=== PATIENT | male | born 1965 | race African-American/Black ===

== ENCOUNTER 2019-08-14 15:35 | Emergency (ER) | payer MEDICAID ==
[~2019-08-14] VITALS: Ht 177.8 cm; Wt 91.0 kg
[2019-08-14 17:09] VITALS: BP 130/80
[2019-08-14] MEDS ORDERED: KETOROLAC 30MG/ML VIAL IM ONE (17:15)
== END 2019-08-14 18:02 | disposition home or self-care (01) ==
LOC: ER 15:35
DX: R68.84 Jaw pain (principal); K04.7 Periapical abscess without sinus; K11.20 Sialoadenitis, unspecified; Z88.0 Allergy status to penicillin
CPT/HCPCS: 96372; 99283; J1885

== ENCOUNTER 2020-10-17 13:02 | Emergency (ER) | payer MEDICAID ==
[~2020-10-17] VITALS: Ht 182.9 cm; Wt 89.0 kg
[2020-10-17] MEDS ORDERED: KETOROLAC 60MG/2ML VIAL IM ONE (16:45)
[2020-10-17] MEDS ORDERED: LIDOCAINE 5% PATCH TOP SCH (16:45)
[2020-10-17] MEDS ORDERED: ACETAMINOPHEN 325MG TABLET PO ONE (16:45)
[2020-10-17] MEDS ORDERED: LIDO700A15 TP (19:27)
[2020-10-17 19:30] VITALS: BP 131/85
== END 2020-10-17 21:39 | disposition home or self-care (01) ==
LOC: ER 13:11
DX: M54.16 Radiculopathy, lumbar region (principal); Z88.0 Allergy status to penicillin
CPT/HCPCS: 72131; 96372; 99284; J1885; Z7610

== ENCOUNTER 2023-10-06 15:37 | Emergency (ER) | payer MEDICAID ==
[~2023-10-06] VITALS: Ht 177.8 cm; Wt 91.0 kg
[~2023-10-06 15:37] MED LIST: LIDO700A15 TP
[2023-10-06 15:38] VITALS: O2SAT 99
[2023-10-06 15:51] VITALS: BP 136/81; PULSE 55; RESP 16; TEMP 99; O2SAT 98
[2023-10-06] MEDS ORDERED: CLIN-194 MT (19:10)
== END 2023-10-06 19:33 | disposition home or self-care (01) ==
LOC: ER 15:37
DX: M79.89 Other specified soft tissue disorders (principal); Z88.0 Allergy status to penicillin
CPT/HCPCS: 99283